=== PATIENT | male | born 1960 | race Caucasian/White ===

== ENCOUNTER 2019-10-11 12:04 | Emergency (ER) | payer OTHER, SELFPAY ==
[2019-10-11] VITALS (8 sets, daily range): BP systolic 128–150; BP diastolic 79–105; PULSE 72–80; RESP 14–18; TEMP 36.9; O2SAT 95–98; BMI 30.4
--- NOTE | 2019-10-11 12:44 | CTR_ITS ---
PROCEDURE INFORMATION: Exam: CT Abdomen And Pelvis Without Contrast Exam date and time: 10/11/2019 12:48 PM Age: 59 years old Clinical indication: Injury or trauma; Injury history: Kicked in L flank by cow; Initial encounter; Blunt; Injury date: Today; Additional info: Unspecified abdominal pain kicked in flank by cow TECHNIQUE: Imaging protocol: Computed tomography of the abdomen and pelvis without contrast. Radiation optimization: All CT scans at this facility use at least one of these dose optimization techniques: automated exposure control; mA and/or kV adjustment per patient size (includes targeted exams where dose is matched to clinical indication); or iterative reconstruction. COMPARISON: CT Chest/Abdomen/Pelvis w IV* 01/11/2018 1:05 PM RADIATION DOSE METRICS: Total DLP (mGy-cm): 1388.42 FINDINGS: Liver: Normal. No mass. Gallbladder and bile ducts: Normal. No calcified stones. No ductal dilation. Pancreas: Normal. No ductal dilation. Spleen: Normal. No splenomegaly. Adrenals: Normal. No mass. Kidneys and ureters: There is scarring in atrophy of the right kidney. No renal calcification or hydronephrosis. Stomach and bowel: Colonic diverticula are present although there are no CT findings to suggest diverticulitis. No bowel obstruction or wall thickening. Appendix: The appendix is visualized and appears normal. Intraperitoneal space: Unremarkable. No free air. No significant fluid collection. Vasculature: Unremarkable. No abdominal aortic aneurysm. Lymph nodes: Unremarkable. No enlarged lymph nodes. Bladder: Unremarkable as visualized. Reproductive: Unremarkable as visualized. Bones/joints: There is bilateral spondylolysis at L5/S1. There is no evidence for acute fracture or malalignment. Soft tissues: Unremarkable. CT/CT abdomen pelvis wo con [id number] IMPRESSION: There are no acute concerning abnormalities. Radiation Dose CTDIVOL = (mGy): DLP = 1388.42 (mGy-cm)
[2019-10-11] MEDS: ondansetron 2 mg/ML SDV 2 mL 4 MG IVP (13:17)
[2019-10-11] MEDS: morphine 4 mg/mL SDV 1 mL 10 MG IVP ×2 (13:17→15:43)
--- NOTE | 2019-10-11 13:18 | W.ED.TRAUMA ---
HPI - Trauma General: Chief Complaint: Trauma Stated Complaint: kicked by cow Time Seen by Provider: 10/11/19 12:31 Source: patient Mode of arrival: ambulatory Limitations: no limitations History of Present Illness: HPI narrative: 59-year-old gentleman who was tending to his cause in the field when 1 call kicked him in the left flank. He has severe pain in the left flank radiating down to his groin. He denies any hematuria. He is here for evaluation. complaint: injury Onset (ago): minute(s) Loss of Consciousness: no Location: abdomen Associated symptoms: Reports abdominal pain and back pain; Denies confusion, cough, difficulty breathing, epistaxis, fever(s), headache(s), nausea, seizures or short of breath Review of Systems General: Reports: 10 or more systems reviewed and unremarkable except in HPI and below Const: Denies: fever(s) Eyes: Denies: change in vision or blurry vision ENMT: Denies: epistaxis Card: Denies: palpitations, irregular heart rhythm, edema or swelling of feet/ankles Resp: Denies: dyspnea, productive cough or non-productive cough GI: Reports: abdominal pain; Denies: nausea : Denies: flank pain, dysuria, urinary frequency, urinary urgency or urinary hesitancy Musc: Reports: back pain Skin/Breast: Denies: rash, pruritus or erythema Neuro: Denies: headache(s) or confusion Endo: Denies: polyuria, polydipsia or tired all the time PFSH ED PFSH: Medical History (Reviewed 10/11/19 @ 13:19 by Donnie Saravia MD, [facility] [place] DDD (degenerative disc disease), lumbar History of hepatitis C History of pacemaker 2014 Hypertension Surgical History (Reviewed 10/11/19 @ 13:19 by Donnie Saravia MD, [facility] [facility] [place] History of orchiectomy, 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 Family History (Reviewed 10/11/19 @ 13:19 by Donnie Saravia MD, [facility] [facility] [place] Mother Hypertension Grandfather Hypertension CAD (coronary artery disease) Denies family history of Cancer Social History (Reviewed 10/11/19 @ 13:19 by Donnie Saravia MD, [facility] [place] Smoking and tobacco status: never smoked Second hand smoke exposure: No Smoking risk assessment/counseling performed?: No Alcohol intake: never Desire information about alcohol rehabilitation?: No Counseling given: No Desire information about substance/drug rehabilitation?: No Counseling given: No Adopted: No Caregiver/support person: No Lives independently: Yes Household members: spouse Housing: House Marital status: Current occupational status: employed History of recent travel: No Current gender identity: Male Physical Exam Const: COMMON NORMALS: no acute distress, average body habitus, patient oriented x3, no limitations, healthy appearing, alert and well nourished HENMT: COMMON NORMALS: normocephalic, atraumatic and moist oral mucous membranes HEAD & SCALP: normocephalic and atraumatic Eye: COMMON NORMALS: Equal, round and reactive pupils present, EOMs intact bilaterally, conjunctivae normal and no scleral icterus CONJUNCTIVA: Yes conjunctivae normal PUPIL: Yes Equal, round and reactive pupils present Neck/C-Spine: COMMON NORMALS: full ROM, supple, no meningeal signs, no JVD and No carotid bruits Resp: COMMON NORMALS: normal respiratory effort, No retractions, No use of accessory muscles, clear to auscultation bilaterally and percussion normal AUSCULTATION: clear to auscultation bilaterally PERCUSSION: percussion normal Cardio: COMMON NORMALS: no JVD, regular rate, regular rhythm, S1 normal heart sound present, S2 normal heart sound present, No gallops present (Cardio), No clicks present (Cardio), No murmurs present (Cardio), No rub (Cardio) and Peripheral pulses 2+ throughout RATE: regular rate RHYTHM: regular rhythm HEART SOUNDS: S1 normal heart sound present and S2 normal heart sound present PERIPHERAL PULSES: Peripheral pulses 2+ throughout GI: COMMON NORMALS: Normal to inspection, nondistended, normoactive bowel sounds present, Soft to palpation, non-tender, No hepatosplenomegaly present, no masses and no bruits PALPATION: Yes Soft to palpation and Yes No hepatosplenomegaly present : BLADDER/KIDNEY EXAM: Yes CVA tenderness on the left Back/Pelvis: GENERAL BACK: Yes CVA tenderness OTHER: Swelling in his left lumbar region Extremity: COMMON NORMALS: normal to inspection, full ROM, capillary refill normal, no calf tenderness and no pedal edema Neuro: COMMON NORMALS: patient oriented x3 SENSORIUM/ORIENTATION: Yes alert MENINGEAL SIGNS: Yes no meningeal signs Skin: COMMON NORMALS: no rashes or lesions noted, no wounds, turgor normal, no jaundice, no petechiae and no mottling GENERAL SKIN EXAM: no rashes or lesions noted and turgor normal MDM - Trauma MDM Narrative: Medical decision making narrative: 59-year-old male who was hit in the flank region by a cow. CT scan done was negative for acute findings. He is discharged home with a prescription for oral pain medication. Medical Records: Attestation: I reviewed the patient's medical records. Lab Data: Attestation: I reviewed the patient's lab results. Labs: Lab Results 10/11/19 Range/Units 13:49 Urine Color Yellow (Yellow) Urine Appearance Clear (CLEAR) Urine pH 5 (5-7) Ur Specific Gravit y 1.015 (1.005-1.030) Urine Protein 1+ H (Negative) Urine Glucose (UA) Norm (Normal) Urine Ketones Negative (Negative) Urine Blood Neg (Negative) Urine Nitrate Negative (Negative) Urine Bilirubin Neg (NEGATIVE) Urine Urobilinogen Norm (Negative) mg/dL Ur Leukocyte Sonia ase Negative (Negative) Urine RBC None (0-2) /hpf Urine WBC 5-10 H (0-5) /hpf Ur Squamous Epith Cells 0-4 H (0-5) Amorphous Sediment Not Reportable Urine Bacteria 1+ H (NONE) Hyaline Casts 0-4 H Urine Mucus 3+ Imaging Data^: CT Abd/Pel: Radiologist's impression: [address] [address] [address] Scan Report Signed Patient: Rolando Hilliard #: [id number] : 1960Acct#:[id number] Age/Sex: 59 / MADM Date: 10/11/19 Loc: ERRoom/Bed: Attending Dr: Ordering Provider/Ordering MD: Donnie Saravia MD, [facility] [place] Date of Service: 10/11/19 Procedure(s): CT abdomen pelvis wo con [id number] Accession Number(s): [id number] Report Number: [id number] PROCEDURE INFORMATION: Exam: CT Abdomen And Pelvis Without Contrast Exam date and time: 10/11/2019 12:48 PM Age: 59 years old Clinical indication: Injury or trauma; Injury history: Kicked in L flank by cow; Initial encounter; Blunt; Injury date: Today; Additional info: Unspecified abdominal pain kicked in flank by cow TECHNIQUE: Imaging protocol: Computed tomography of the abdomen and pelvis without contrast. Radiation optimization: All CT scans at this facility use at least one of these dose optimization techniques: automated exposure control; mA and/or kV adjustment per patient size (includes targeted exams where dose is matched to clinical indication); or iterative reconstruction. COMPARISON: CT Chest/Abdomen/Pelvis w IV* 01/11/2018 1:05 PM RADIATION DOSE METRICS: Total DLP (mGy-cm): 1388.42 FINDINGS: Liver: Normal. No mass. Gallbladder and bile ducts: Normal. No calcified stones. No ductal dilation. Pancreas: Normal. No ductal dilation. Spleen: Normal. No splenomegaly. Adrenals: Normal. No mass. Kidneys and ureters: There is scarring in atrophy of the right kidney. No renal calcification or hydronephrosis. Stomach and bowel: Colonic diverticula are present although there are no CT findings to suggest diverticulitis. No bowel obstruction or wall thickening. Appendix: The appendix is visualized and appears normal. Intraperitoneal space: Unremarkable. No free air. No significant fluid collection. Vasculature: Unremarkable. No abdominal aortic aneurysm. Lymph nodes: Unremarkable. No enlarged lymph nodes. Bladder: Unremarkable as visualized. Reproductive: Unremarkable as visualized. Bones/joints: There is bilateral spondylolysis at L5/S1. There is no evidence for acute fracture or malalignment. Soft tissues: Unremarkable. CT/CT abdomen pelvis wo con [id number] IMPRESSION: There are no acute concerning abnormalities. Radiation Dose CTDIVOL = (mGy): DLP = 1388.42 (mGy-cm) Dictated By:Liset Callahan MD Signed By:Liset Callahanigned Date/Time:10/11/191456 DD/ 55 Discharge Plan Discharge Patient Disposition: Home, Self-Care Clinical Impression: Acute flank pain, [place] Condition: Stable Prescriptions: [place] 5-325 mg tablet 1 tab PO Q8H PRN (Reason: pain) Qty: 20 RF: 0 Continued metoprolol succinate 50 mg tablet extended release 24 hr 50 mg PO BID RF: 0 donepezil 10 mg tablet 10 mg PO BEDTIME RF: 0 albuterol sulfate 90 mcg/actuation HFA aerosol inhaler 2 puff INHALATION Q6H PRN (Reason: Shortness Of Breath) RF: 0 testosterone 12.5 mg/ 1.25 gram (1 %) gel in metered-dose pump 3 pump topical DAILY RF: 0 Nitrostat 0.4 mg Tablet, Sublingual 0.4 mg SUBLINGUAL Q5M PRN (Reason: Chest Pain) RF: 0 Discharge Orders: Discharge Order (Routine); Ordered 10/11/19 Ordered By: Donnie Saravia Referrals: Ciara Christina FNP-C [Primary Care Provider] - 4-7 days Patient Instructions: Musculoskeletal Pain (ED) Activity Restrictions/Additional Instructions: Return for any new or worsening symptoms. Take the pain medication as needed for pain. Apply ice to the affected area for the next 24 hours then switch to a warm compress. Apply the ice for about 15 minutes on and at least 15 minutes of each time. Same for warm compress. Discharge Date/Time: 10/11/19 16:30 Coding Level of Care Code ED Mother'S Helper for Chg Fwd Exam Comprehensive
[2019-10-11 14:13] LABS: Add Urine Microscopic? YES; Bilirubin Urine Neg (NEGATIVE); Blood Urine Neg (Negative); Glucose Urine UA Norm (Normal); Ketones Urine Negative (Negative); Leukocyte Esterase Urine Negative (Negative); Nitrate Urine Negative (Negative); Protein Urine 1+ (Negative); Specific Gravity, Urine 1.015 (1.005-1.030); Urine Appearance Clear (CLEAR); Urine Color Yellow (Yellow); Urobilinogen Urine Norm (Negative); pH Urine 5 (5-7)
[2019-10-11 14:14] LABS: Add Urine Culture? No; Bacteria Urine 1+; Hyaline Casts Urine 0-4; Mucus Urine 3+; Squamous Epithelial Cell Urine 0-4 (0-5)
== END 2019-10-11 16:30 | disposition home or self-care (01) ==
PROVIDERS: Emergency Provider Family Medicine; PCP Nurse Practitioner Family
DX: R10.9 Unspecified abdominal pain (principal); Z86.19 Personal history of other infectious and parasitic diseases; Z95.0 Presence of cardiac pacemaker
CPT/HCPCS: 12345; 74176; 81001; 96374; 96375; 96376; 99283; J2270; J2405

== ENCOUNTER → 2020-02-23 14:40 | Outpatient (BNVA) | payer OTHER, SELFPAY | PROVIDERS: PCP Nurse Practitioner Family; Visit Provider Nurse Practitioner Family | DX: Z20.828 Contact with and (suspected) exposure to other viral communicable diseases (principal) | CPT/HCPCS: 87426 ==

== ENCOUNTER → 2020-03-19 10:52 | Outpatient (BNVA) | payer OTHER, SELFPAY | PROVIDERS: PCP Nurse Practitioner Family; Visit Provider Emergency Medicine | DX: Z20.828 Contact with and (suspected) exposure to other viral communicable diseases (principal) | CPT/HCPCS: 87635 ==

== ENCOUNTER 2020-03-21 19:52 | Emergency (ER) | payer OTHER, SELFPAY ==
[2020-03-21 20:33] VITALS: BP 98/68; PULSE 99; RESP 22; TEMP 36.8; O2SAT 99; BMI 30.4
--- NOTE | 2020-03-21 20:54 | XR_ITS ---
WS: [id number] XR chest 1V portable [id number] REASON FOR EXAM: syncope FINDINGS: The chest is unchanged compared to 03/21/2020. Battery pack in place over the left chest with leads to the left subclavian vein to the right ventric ular apex and right atrium. The heart is not enlarged. Mild elevation of the right hemidiaphragm. No active pulmonary parenchymal pleural disease. Bony thorax is intact. XR/XR chest 1V portable [id number] IMPRESSION: No acute chest abnormality.
[2020-03-21] MEDS: ondansetron 2 mg/ML SDV 2 mL 4 MG IVP (21:20)
[2020-03-21] MEDS: sodium chloride 0.9% 500 ML 999 ML IV (21:20)
[2020-03-21 21:27] LABS: Basophils % 0.3 %; Eosinophils % 0.1 %; Hematocrit 47.4 % (42.0-52.0); Hemoglobin 16.7 g/dL (11.7-16.6); Lymphocytes # 0.9 10^3/uL (0.8-4.8); Lymphocytes % 11.6 %; Mean Corpuscular HGB Conc 35.2 g/dL (30.0-36.0); Mean Corpuscular Hemoglobin 29.7 pg (28.0-34.0); Mean Corpuscular Volume 84.3 fL (80-94); Mean Platelet Volume 10.9 fL (7.4-10.4); Monocytes # 0.7 10^3/uL (0.2-0.9); Monocytes % 8.8 %; Neutrophils # 6.07 10^3/uL (1.8-7.7); Neutrophils % 78.9 %; Nucleated Red Blood Cells % 0 %; Platelet Count 139 10^3/cmm (130-400); Red Blood Count 5.62 10^6/uL (4.1-5.3); Red Cell Distribution Width 12.3 % (12.1-15.1); White Blood Count 7.7 10^3/uL (4.0-10.0)
--- NOTE | 2020-03-21 21:28 | ED_ITS ---
HPI - COVID General: Chief Complaint: COVID symptoms Stated Complaint: COVID+/all symptoms/in COVID room Time Seen by Provider: 03/21/20 20:08 Source: patient and family (spouse) Mode of arrival: ambulatory Limitations: no limitations Triage information: Has fever, cough or shortness of breath . Exposure to COVID + person last 14 days History of Present Illness: HPI Narrative: 59-year-old male patient presents to the emergency department with increased weakness, nausea vomiting diarrhea x2 days, test results positive, Covid PTC through [facility]. He reports too weak to care for his or himself. MD complaint: known COVID positive and reported COVID exposure Prior covid testing: yes, results known Prior testing date: 03/19/20 COVID 19 common symptoms: positive fever(s), chills, cough, productive cough, dyspnea, fatigue, body aches, loss of sense of smell and/or taste, nasal congestion, nausea, vomiting and diarrhea; negative headache(s) COVID 19 other sytmptoms: negative chest pain Onset (ago): day(s) (5) Severity: moderate and slowly worsening Pertinent comorbid conditions: hypertension, heart disease, COPD/respiratory disease and chronic kidney disease Treatment prior to arrival: acetaminophen and breathing treatments COVID Results: SARS-CoV-2 Antigen (Rapid) Negative (Negative) 02/23/20 14:40 02/23/20 Nasal/Oral Coronavirus 2019 PCR Positive 03/19/20 10:52 03/19/20 Review of Systems General: Reports: 10 or more systems reviewed and unremarkable except in HPI and below Const: Reports: fever(s), chills, body aches, fatigue and malaise Eyes: Denies: change in vision, blurry vision, eye discomfort or eye redness ENMT: Reports: dry mouth, nasal discharge, nasal congestion and post nasal drip; Denies: uvular edema, dental pain, ear or mastoid pain or nasal obstruction Card: Reports: dyspnea on exertion; Denies: chest pain, palpitations, irregular heart rhythm, edema, swelling of feet/ankles, lightheadedness, syncope or orthopnea Resp: Reports: dyspnea, productive cough, wheezing, change in phlegm color and chest congestion; Denies: hemoptysis GI: Reports: nausea, vomiting and diarrhea; Denies: abdominal pain, constipation or bloating : Denies: dysuria Musc: Denies: back pain Skin/Breast: Denies: rash or pruritus Neuro: Denies: headache(s), weakness in extremities or behavioral changes Sony/Lymph: Denies: easy bruising PFSH ED PFSH: Medical History (Updated 03/21/20 @ 23:10 by LIZ Stewart) DDD (degenerative disc disease), lumbar History of hepatitis C History of pacemaker 2014 Hypertension Surgical History History of orchiectomy, 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 Family History Mother Hypertension Grandfather Hypertension CAD (coronary artery disease) Denies family history of Cancer Social History Smoking and tobacco status: never smoked Second hand smoke exposure: No Smoking risk assessment/counseling performed?: No Alcohol intake: never Desire information about alcohol rehabilitation?: No Counseling given: No Desire information about substance/drug rehabilitation?: No Counseling given: No Adopted: No Caregiver/support person: No Lives independently: Yes Household members: spouse Housing: House Marital status: Current occupational status: employed History of recent travel: No Current gender identity: Male Physical Exam Const: COMMON NORMALS: no acute distress, average body habitus, patient oriented x3, healthy appearing and alert EXAM LIMITATIONS: no altered mental status and no language barrier GENERAL APPEARANCE: cooperative, comfortable, well kempt, well developed and well hydrated; not anxious, not disheveled, not ill appearing, not frail appearing and not diaphoretic NUTRITIONAL APPEARANCE: overweight ORIENTATION/CONSCIOUSNESS: Yes awake, Yes oriented to person, Yes oriented to place and Yes oriented to time; not confused HENMT: COMMON NORMALS: normocephalic, atraumatic, EAC's normal, Normal external nose present and moist oral mucous membranes HEAD & SCALP: normal to inspection, normocephalic and atraumatic; no Acrocyanosis present FACE & SINUS: normal facial exam and face symmetric; no Acrocyanosis present NOSE: Normal external nose present and Normal nares present EXTERNAL AUDITORY CANAL: EAC's normal MOUTH: moist mucous membranes abnormal (dry) THROAT: uvula midline; no uvular edema Eye: COMMON NORMALS: Equal, round and reactive pupils present and EOMs intact bilaterally GENERAL EYE: appearance normal, both eyes and all related structures PUPIL: Yes Equal, round and reactive pupils present Neck/C-Spine: COMMON NORMALS: full ROM and no lymphadenopathy GENERAL: Yes normal visual inspection and Yes trachea midline CERVICAL SPINE: Yes cervical ROM normal Lymph: LYMPHATIC: no lymphadenopathy noted Chest: COMMONS NORMALS: normal inspection of the chest and normal palpation of entire chest wall Resp: COMMON NORMALS: normal respiratory effort, No retractions, No use of accessory muscles and clear to auscultation bilaterally EFFORT & INSPECTION: Yes able to speak in complete sentences and No uses accessory muscles AUSCULTATION: clear to auscultation bilaterally, no rhonchi, no wheezes and diminished lung sounds bilateral in the lower lung leach Cardio: COMMON NORMALS: regular rate, regular rhythm, S1 normal heart sound present, S2 normal heart sound present and Peripheral pulses 2+ throughout RATE: regular rate RHYTHM: regular rhythm HEART SOUNDS: S1 normal heart sound present and S2 normal heart sound present PERIPHERAL PULSES: Peripheral pulses 2+ throughout GI: COMMON NORMALS: Normal to inspection, nondistended, normoactive bowel sounds present, Soft to palpation and non-tender INSPECTION: Yes normal to inspection, No visible herniation, No visible pulsation and No Fluid wave present PALPATION: Yes Soft to palpation PERCUSSION: no fluid wave : COMMON NORMALS: Yes no CVA tenderness BLADDER/KIDNEY EXAM: Yes no CVA tenderness Back/Pelvis: COMMON NORMALS: no CVA tenderness and thoracic and lumbar spine normal to inspection Extremity: COMMON NORMALS: normal to inspection and capillary refill normal Neuro: COMMON NORMALS: patient oriented x3 and no focal motor deficits SENSORIUM/ORIENTATION: Yes alert, Yes oriented to person, Yes oriented to place and Yes oriented to time Psych: COMMON NORMALS: mental status grossly normal, Normal thought process present and cooperative APPEARANCE: Yes well kempt ACTIVITY/MOTOR BEHAVIOR: Yes appropriate eye contact THOUGHT PROCESS: Normal thought process present Skin: COMMON NORMALS: no rashes or lesions noted and turgor normal GENERAL SKIN EXAM: no rashes or lesions noted and turgor normal Course ED course: 59-year-old male patient presents to the emergency department tonight with Covid symptoms, increased weakness, vomiting and diarrhea. IV fluids administered with Zofran. Patient was able to tolerate oral hydration without vomiting. CTA chest with groundglass opacities consistent with Covid infection. Oxygen saturation remained 95 to 100% during his stay. Ability to monitor oxygen saturation at home with pulse ox, advised to return to the emergency department if hypoxia, O2 sat less than 90% occurs. Nausea resolved. He reports feels better and wants to go home. Prescription of Zofran with prednisone provided. Advised to return to the emergency department for concerning symptoms, verbalized understanding. Is advised to continue quar antine and recommendations as per health department. Vital Signs: Vital signs: Vital Signs Temperature 98.3 F 03/21/20 20:33 Pulse Rate 74 03/21/20 23:35 Respiratory Rate 18 03/21/20 23:35 Blood Pressure 124/83 03/21/20 23:35 Pulse Oximetry 95 03/21/20 23:35 MDM - COVID Differential Diagnosis: Differential diagnosis: Likely COVID 19, influenza and pulmonary embolism Lab Data: Labs: Lab Results 03/21/20 03/21/20 03/21/20 Range/Units 21:13 21:13 21:13 WBC 7.7 (4.0-10.0) 10^3/ uL RBC 5.62 H (4.1-5.3) 10^6/u L Hgb 16.7 H (11.7-16.6) g/dL Hct 47.4 (42.0-52.0) % MCV 84.3 (80-94) fL MCH 29.7 (28.0-34.0) pg MCHC 35.2 (30.0-36.0) g/dL RDW 12.3 (12.1-15.1) % Plt Count 139 (130-400) 10^3/c mm MPV 10.9 H (7.4-10.4) fL Neut % (Auto) 78.9 % Lymph % (Auto) 11.6 % [place] % (Auto) 8.8 % Eos % (Auto) 0.1 % Baso % (Auto) 0.3 % Neut # (Auto) 6.07 (1.8-7.7) 10^3/u L Lymph # (Auto) 0.9 (0.8-4.8) 10^3/u L [place] # (Auto) 0.7 (0.2-0.9) 10^3/u L Eos # (Auto) 0.0 (0.0-0.8) 10^3/u L Baso # (Auto) 0.0 (0.0-0.1) 10^3/u L Nucleated RBC % (a uto) 0 % Nucleated RBCs # 0.0 /100WBC ESR 7 (0-10) mm/hr D-Dimer 0.76 H (0-0.59) ug/mIFE U Sodium (136-145) mmol/L Potassium (3.5-5.1) mmol/L Chloride (98-107) mmol/L Carbon Dioxide (22-29) mmol/L Anion Gap (5-19) BUN (6-20) mg/dL Creatinine (0.7-1.2) mg/dL GFR Calculation (90-130) mL/min Glucose (65-115) mg/dL Calculated Osmolal ity (285-295) mOsm/k g Lactate (0.5-2.2) mmol/L Calcium (8.5-10.5) mg/dL Total Bilirubin (0.15-1.2) mg/dL AST (0-40) U/L ALT (0-41) U/L Alkaline Phosphata se (40-130) IU/L Troponin T Baselin e (0-15) ng/L C-Reactive Protein (0.0-4.9) mg/L NT-Pro-B Natriuret Pep (0-125) pg/mL Total Protein (6.6-8.7) g/dL Albumin (3.5-5.2) g/dL Globulin (1.3-4.6) g/dL Influenza Type A A g (Negative) Influenza Type B A g (Negative) 03/21/20 03/21/20 03/21/20 Range/Units 21:13 21:13 21:13 WBC (4.0-10.0) 10^3/ uL RBC (4.1-5.3) 10^6/u L Hgb (11.7-16.6) g/dL Hct (42.0-52.0) % MCV (80-94) fL MCH (28.0-34.0) pg MCHC (30.0-36.0) g/dL RDW (12.1-15.1) % Plt Count (130-400) 10^3/c mm MPV (7.4-10.4) fL Neut % (Auto) % Lymph % (Auto) % [place] % (Auto) % Eos % (Auto) % Baso % (Auto) % Neut # (Auto) (1.8-7.7) 10^3/u L Lymph # (Auto) (0.8-4.8) 10^3/u L [place] # (Auto) (0.2-0.9) 10^3/u L Eos # (Auto) (0.0-0.8) 10^3/u L Baso # (Auto) (0.0-0.1) 10^3/u L Nucleated RBC % (a uto) % Nucleated RBCs # /100WBC ESR (0-10) mm/hr D-Dimer (0-0.59) ug/mIFE U Sodium 133 L (136-145) mmol/L Potassium 3.7 (3.5-5.1) mmol/L Chloride 100 (98-107) mmol/L Carbon Dioxide 22 (22-29) mmol/L Anion Gap 14.7 (5-19) BUN 11 (6-20) mg/dL Creatinine 1.1 (0.7-1.2) mg/dL GFR Calculation 69.0 L (90-130) mL/min Glucose 135 H (65-115) mg/dL Calculated Osmolal ity 277 L (285-295) mOsm/k g Lactate 1.3 (0.5-2.2) mmol/L Calcium 8.6 (8.5-10.5) mg/dL Total Bilirubin 0.5 (0.15-1.2) mg/dL AST 21 (0-40) U/L ALT 23 (0-41) U/L Alkaline Phosphata se 64 (40-130) IU/L Troponin T Baselin e 7 (0-15) ng/L C-Reactive Protein 8.2 H (0.0-4.9) mg/L NT-Pro-B Natriuret Pep 24 (0-125) pg/mL Total Protein 6.5 L (6.6-8.7) g/dL Albumin 4.0 (3.5-5.2) g/dL Globulin 2.5 (1.3-4.6) g/dL Influenza Type A A g (Negative) Influenza Type B A g (Negative) 03/21/20 Range/Units 21:14 WBC (4.0-10.0) 10^3/ uL RBC (4.1-5.3) 10^6/u L Hgb (11.7-16.6) g/dL Hct (42.0-52.0) % MCV (80-94) fL MCH (28.0-34.0) pg MCHC (30.0-36.0) g/dL RDW (12.1-15.1) % Plt Count (130-400) 10^3/c mm MPV (7.4-10.4) fL Neut % (Auto) % Lymph % (Auto) % [place] % (Auto) % Eos % (Auto) % Baso % (Auto) % Neut # (Auto) (1.8-7.7) 10^3/u L Lymph # (Auto) (0.8-4.8) 10^3/u L [place] # (Auto) (0.2-0.9) 10^3/u L Eos # (Auto) (0.0-0.8) 10^3/u L Baso # (Auto) (0.0-0.1) 10^3/u L Nucleated RBC % (a uto) % Nucleated RBCs # /100WBC ESR (0-10) mm/hr D-Dimer (0-0.59) ug/mIFE U Sodium (136-145) mmol/L Potassium (3.5-5.1) mmol/L Chloride (98-107) mmol/L Carbon Dioxide (22-29) mmol/L Anion Gap (5-19) BUN (6-20) mg/dL Creatinine (0.7-1.2) mg/dL GFR Calculation (90-130) mL/min Glucose (65-115) mg/dL Calculated Osmolal ity (285-295) mOsm/k g Lactate (0.5-2.2) mmol/L Calcium (8.5-10.5) mg/dL Total Bilirubin (0.15-1.2) mg/dL AST (0-40) U/L ALT (0-41) U/L Alkaline Phosphata se (40-130) IU/L Troponin T Baselin e (0-15) ng/L C-Reactive Protein (0.0-4.9) mg/L NT-Pro-B Natriuret Pep (0-125) pg/mL Total Protein (6.6-8.7) g/dL Albumin (3.5-5.2) g/dL Globulin (1.3-4.6) g/dL Influenza Type A A g Negative (Negative) Influenza Type B A g Negative (Negative) Imaging Data: CTA Chest: Radiologist's impression: [address] [address] [address] Scan Report Signed Patient: Rolando Hilliard #: [id number] : 1960Acct#:[id number] Age/Sex: 59 / MADM Date: 03/21/20 Loc: ERRoom/Bed: Attending Dr: Ordering Provider/Ordering MD: Sarah Díaz Date of Service: 03/21/20 Procedure(s): CT angio chest PE protcl [id number] Accession Number(s): [id number] Report Number: [id number] PROCEDURE INFORMATION: Exam: CT Angiography Chest With Contrast Exam date and time: 03/21/2020 10:17 PM Age: 59 years old Clinical indication: Abnormal findings; Abnormal diagnostic tests; Elevated d-dimer; Prior surgery; Surgery type: Pacer. Stimulator. ; Patient HX: Elevated d dimer. Covid +; Additional info: Elevated d-dimer, SOB TECHNIQUE: Imaging protocol: Computed tomographic angiography of the chest with intravenous contrast. 3D rendering (Not supervised by radiologist): MIP and/or 3D reconstructed images were created by the technologist. Radiation optimization: All CT scans at this facility use at least one of these dose optimization techniques: automated exposure control; mA and/or kV adjustment per patient size (includes targeted exams where dose is matched to clinical indication); or iterative reconstruction. Contrast material: OMNI 350; Contrast volume: 69 ml; Contrast route: INTRAVENOUS (IV); COMPARISON: CT Chest/Abdomen/Pelvis w IV* 01/11/2018 1:05 PM RADIATION DOSE METRICS: Total DLP (mGy-cm): 598.11 FINDINGS: Tubes, catheters and devices: A pacemaker device is present, and its leads are in appropriate position. There are neurostimulator electrodes in the thoracic region not changed from previous. Pulmonary arteries: There is no evidence of filling defects within the pulmonary arterial circulation to suggest pulmonary embolism. Aorta: Unremarkable. No aortic aneurysm. No aortic dissection. Lungs: There are some minimal areas of rounded ground-glass opacity. These are located at the left lung base such as an image number 320 in the posterior right lower lobe superior segment and abutting the major fissure in the posterior segment of the right upper lobe. These findings may be consistent with the clinical diagnosis of COVID-19 infection. Pleural space: Unremarkable. No pneumothorax. No pleural effusion. Heart: Unremarkable. No cardiomegaly. No pericardial effusion. Lymph nodes: There are mildly prominent precarinal and AP window lymph nodes measuring up to 12 x 15 mm not significantly changed from previous. Bones/joints: Unremarkable. No acute fracture. Soft tissues: Unremarkable. CT/CT angio chest PE protcl [id number] IMPRESSION: 1. No evidence of pulmonary embolism. 2. Minimal pulmonary ground-glass opacities which could represent COVID-19 infection. Radiation Dose CTDIVOL = (mGy): DLP = 598.11 (mGy-cm) Dictated By:Dandre Butt Signed By:Cruzito Buttigned Date/Time:03/21/202307 DD/ 05 EKG Data: EKG 1: EKG interpretation date: 03/21/20 EKG interpretation time: 21:09 Other EKG comments: Sinus rhythm, atypical ECG, ventricular rate 80 COVID Results: SARS-CoV-2 Antigen (Rapid) Negative (Negative) 02/23/20 14:40 02/23/20 Nasal/Oral Coronavirus 2019 PCR Positive 03/19/20 10:52 03/19/20 Discharge Plan Discharge Patient Disposition: Home Clinical Impression: COVID-19, Acute bronchitis due to 2019 novel coronavirus Condition: Stable Prescriptions: New Zofran 4 mg tablet 4 mg PO Q4H Qty: 10 RF: 0 prednisone 20 mg tablet 20 mg PO BID 5 Days Qty: 10 RF: 0 No Action metoprolol succinate 50 mg tablet extended release 24 hr 50 mg PO BID RF: 0 donepezil 10 mg tablet 10 mg PO BEDTIME@2100 RF: 0 albuterol sulfate 90 mcg/actuation HFA aerosol inhaler 2 puff INHALATION Q6H PRN (Reason: Shortness Of Breath) RF: 0 testosterone 12.5 mg/ 1.25 gram (1 %) gel in metered-dose pump 3 pump topical DAILY@0600 RF: 0 nitroglycerin [Nitrostat] 0.4 mg Tablet, Sublingual 0.4 mg SUBLINGUAL Q5M PRN (Reason: Chest Pain) RF: 0 hydrocodone-acetaminophen [[place]] 5-325 mg tablet 1 tab PO Q8H PRN (Reason: pain) Qty: 20 RF: 0 Tylenol 325 mg Tablet 325 - 650 mg PO Q4H PRN (Reason: fever/pain) RF: 0 Discharge Orders: Discharge ED (Routine); Ordered 03/21/20 Ordered By: Sarah Díaz Referrals: Ciara Christina FNP-C [Primary Care Provider] - Discharge Diet: Advance as tolerated and Clear Liquid Discharge Activity: Limit activity as instructed Patient Instructions: Acute Bronchitis (ED), Viral Syndrome (ED) Activity Restrictions/Additional Instructions: remain in quarantine as directed by the health department Continue to monitor pulse ox - return to the ED if you experience oxygen level less than 90 % Take Zofran as needed for nausea - clear liquids then advance diet as tolerated, return to the ED if you experience continued vomiting with use of Zofran Rest at home, you will need to push fluids to avoid dehydration. Continue albuterol inhaler as needed for cough. Return to the emergency department if you develop inability to catch your breath, low oxygen level or increased shortness of breath. 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
[2020-03-21 21:38] VITALS: BP 122/91; PULSE 75; RESP 18; O2SAT 92; O2SAT 93
[2020-03-21 21:43] LABS: D Dimer 0.76 ug/mIFEU (0-0.59)
[2020-03-21 21:48] LABS: Lactate (Lactic Acid level) 1.3 mmol/L (0.5-2.2); Troponin(5th) Baseline 7 ng/L (0-15)
[2020-03-21 21:57] LABS: Alanine Aminotransferase 23 U/L (0-41); Alkaline Phosphatase 64 IU/L (40-130); Anion Gap 14.7 (5-19); Aspartate Amino Transferase 21 U/L (0-40); Blood Urea Nitrogen 11 mg/dL (6-20); C Reactive Protein 8.2 mg/L (0.0-4.9); Calcium 8.6 mg/dL (8.5-10.5); Carbon Dioxide 22 mmol/L (22-29); Chloride 100 mmol/L (98-107); Globulin 2.5 g/dL (1.3-4.6); Glucose 135 mg/dL (65-115); NT Pro B Type Natriuretic Pept 24 pg/mL (0-125); Osmolality Calculated 277 mOsm/kg (285-295); Potassium 3.7 mmol/L (3.5-5.1); Sodium 133 mmol/L (136-145); Total Bilirubin 0.5 mg/dL (0.15-1.2); Total Protein 6.5 g/dL (6.6-8.7)
--- NOTE | 2020-03-21 22:07 | CTR_ITS ---
PROCEDURE INFORMATION: Exam: CT Angiography Chest With Contrast Exam date and time: 03/21/2020 10:17 PM Age: 59 years old Clinical indication: Abnormal findings; Abnormal diagnostic tests; Elevated d-dimer; Prior surgery; Surgery type: Pacer. Stimulator. ; Patient HX: Elevated d dimer. Covid +; Additional info: Elevated d-dimer, SOB TECHNIQUE: Imaging protocol: Computed tomographic angiography of the chest with intravenous contrast. 3D rendering (Not supervised by radiologist): MIP and/or 3D reconstructed images were created by the technologist. Radiation optimization: All CT scans at this facility use at least one of these dose optimization techniques: automated exposure control; mA and/or kV adjustment per patient size (includes targeted exams where dose is matched to clinical indication); or iterative reconstruction. Contrast material: OMNI 350; Contrast volume: 69 ml; Contrast route: INTRAVENOUS (IV); COMPARISON: CT Chest/Abdomen/Pelvis w IV* 01/11/2018 1:05 PM RADIATION DOSE METRICS: Total DLP (mGy-cm): 598.11 FINDINGS: Tubes, catheters and devices: A pacemaker device is present, and its leads are in appropriate position. There are neurostimulator electrodes in the thoracic region not changed from previous. Pulmonary arteries: There is no evidence of filling defects within the pulmonary arterial circulation to suggest pulmonary embolism. Aorta: Unremarkable. No aortic aneurysm. No aortic dissection. Lungs: There are some minimal areas of rounded ground-glass opacity. These are located at the left lung base such as an image number 320 in the posterior right lower lobe superior segment and abutting the major fissure in the posterior segment of the right upper lobe. These findings may be consistent with the clinical diagnosis of COVID-19 infection. Pleural space: Unremarkable. No pneumothorax. No pleural effusion. Heart: Unremarkable. No cardiomegaly. No pericardial effusion. Lymph nodes: There are mildly prominent precarinal and AP window lymph nodes measuring up to 12 x 15 mm not significantly changed from previous. Bones/joints: Unremarkable. No acute fracture. Soft tissues: Unremarkable. CT/CT angio chest PE protcl [id number] IMPRESSION: 1. No evidence of pulmonary embolism. 2. Minimal pulmonary ground-glass opacities which could represent COVID-19 infection. Radiation Dose CTDIVOL = (mGy): DLP = 598.11 (mGy-cm)
[2020-03-21 22:10] LABS: Influenza A by IFA Negative (Negative); Influenza B by IFA Negative (Negative)
[2020-03-21 22:12] LABS: Erythrocyte Sedimentation Rate 7 mm/hr (0-10)
[2020-03-21] MEDS: iohexol 350 mg/mL 100 mL Btl IV (22:20)
[2020-03-21 23:18] VITALS: BP 140/80; PULSE 71; RESP 18; O2SAT 94
[2020-03-21] MEDS: predniSONE 20 mg Tablet PO (23:30)
[2020-03-21 23:35] VITALS: BP 124/83; PULSE 74; RESP 18; O2SAT 95
[2020-03-22 01:50] LABS: Procalcitonin 0.11 ng/mL (0-0.5)
== END 2020-03-21 23:36 | disposition home or self-care (01) ==
PROVIDERS: Emergency Provider Nurse Practitioner Family; PCP Nurse Practitioner Family
DX: U07.1 COVID-19 (principal); J20.8 Acute bronchitis due to other specified organisms; Z86.19 Personal history of other infectious and parasitic diseases; Z95.0 Presence of cardiac pacemaker; I10 Essential (primary) hypertension
CPT/HCPCS: 12345; 71045; 71275; 80053; 83605; 83880; 84145; 84484; 85025; 85378; 85651; 86140; 87804; 96374; 99283; 99284; J2405; J7040; J7512; Q9967

== ENCOUNTER 2020-03-24 12:22 | Emergency (ER) | payer OTHER, SELFPAY ==
[2020-03-24 12:36] VITALS: BP 116/74; PULSE 98; RESP 24; TEMP 37.7; O2SAT 94; BMI 31.0
--- NOTE | 2020-03-24 12:59 | XRR_ITS ---
PROCEDURE INFORMATION: Exam: XR Chest, 1 View Exam date and time: 03/24/2020 1:24 PM Age: 59 years old Clinical indication: Dyspnea; Additional info: Dyspnea/covid TECHNIQUE: Imaging protocol: XR of the chest Views: 1 view. COMPARISON: CR XR chest 1V portable [id number] 03/21/2020 9:08 PM FINDINGS: Tubes, catheters and devices: Stable left pacemaker. Lungs: Unremarkable. No consolidation. Pleural space: Unremarkable. No pleural effusion. No pneumothorax. Heart/Mediastinum: Unremarkable. No cardiomegaly. Bones/joints: Unremarkable. XR/XR chest 1V portable [id number] IMPRESSION: No acute findings.
--- NOTE | 2020-03-24 13:13 | W.ED.COVID ---
HPI - COVID General: Chief Complaint: COVID symptoms Stated Complaint: COVID+, OX LEVELS DROPPING Time Seen by Provider: 03/24/20 12:48 Triage information: Has fever, cough or shortness of breath. Exposure to COVID + person last 14 days History of Present Illness: HPI Narrative: 59-year-old male presents emergency room with complaint of worsening cough and shortness of breath at times he has a finger sat monitor from at home that he has been monitoring at home. He is getting sats sometimes dropping into the 80s. When I use his finger sat monitor at the bedside there is a discrepancy of 6-8 points on his oxygen saturation. Looking back it is not previous office notes on 03 18 he had a telehealth visit with [facility] at that time he is complaining of symptoms for the previous 4 days that puts him today on day 11 day.. MD complaint: known COVID positive Prior covid testing: yes, results known COVID 19 common symptoms: positive fever(s), chills, cough, non-productive cough, dyspnea, fatigue, body aches, headache(s), throat pain, nasal congestion, nausea and diarrhea COVID 19 other sytmptoms: negative chest pain or requiring oxygen Onset (ago): day(s) (11) Severity: moderate Pertinent comorbid conditions: hypertension and COPD/respiratory disease Treatment prior to arrival: acetaminophen and ibuprofen COVID Results: SARS-CoV-2 Antigen (Rapid) Negative (Negative) 02/23/20 14:40 02/23/20 Nasal/Oral Coronavirus 2019 PCR Positive 03/19/20 10:52 03/19/20 Review of Systems Const: Reports: fever(s), chills, body aches and fatigue ENMT: Reports: throat pain and nasal congestion Card: Denies: chest pain, edema, dyspnea on exertion or orthopnea Resp: Reports: dyspnea and non-productive cough GI: Reports: nausea and diarrhea : Denies: flank pain, dysuria, urinary frequency or urinary urgency Skin/Breast: Denies: rash or pruritus Neuro: Reports: headache(s) PFS ED PFSH: Medical History (Updated 03/24/20 @ 14:15 by Jose Headley DO) DDD (degenerative disc disease), lumbar History of hepatitis C History of pacemaker 2014 Hypertension Surgical History History of orchiectomy, 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 Family History Mother Hypertension Grandfather Hypertension CAD (coronary artery disease) Denies family history of Cancer Social History Smoking and tobacco status: never smoked Second hand smoke exposure: No Smoking risk assessment/counseling performed?: No Alcohol intake: never Desire information about alcohol rehabilitation?: No Counseling given: No Desire information about substance/drug rehabilitation?: No Counseling given: No Adopted: No Caregiver/support person: No Lives independently: Yes Household members: spouse Housing: House Marital status: Current occupational status: employed History of recent travel: No Current gender identity: Male Physical Exam Const: COMMON NORMALS: no acute distress GENERAL APPEARANCE: cooperative and comfortable ORIENTATION/CONSCIOUSNESS: Yes awake, Yes oriented to person, Yes oriented to place and Yes oriented to time HENMT: COMMON NORMALS: normocephalic, atraumatic, hearing grossly normal bilaterally, external ears normal, EAC's normal, TM's normal bilaterally, Normal nasal mucous membranes and turbinates present, moist oral mucous membranes and oropharynx normal HEAD & SCALP: normocephalic and atraumatic NOSE: Normal nasal mucous membranes and turbinates present EXTERNAL EAR: Yes external ears normal EXTERNAL AUDITORY CANAL: EAC's normal TYMPANIC MEMBRANE: TM's normal bilaterally Eye: COMMON NORMALS: Equal, round and reactive pupils present, EOMs intact bilaterally, conjunctivae normal and no scleral icterus CONJUNCTIVA: Yes conjunctivae normal PUPIL: Yes Equal, round and reactive pupils present Neck/C-Spine: COMMON NORMALS: full ROM, no lymphadenopathy, supple and no JVD Lymph: LYMPHATIC: no lymphadenopathy noted and no lymphedema noted Resp: COMMON NORMALS: normal respiratory effort, No retractions, No use of accessory muscles and clear to auscultation bilaterally AUSCULTATION: clear to auscultation bilaterally Cardio: COMMON NORMALS: no JVD, regular rate, regular rhythm and No murmurs present (Cardio) RATE: regular rate RHYTHM: regular rhythm GI: COMMON NORMALS: Soft to palpation and No hepatosplenomegaly present AUSCULTATION: Yes normoactive bowel sounds PALPATION: Yes Soft to palpation, No Tenderness to palpation present (GI), No Guarding due to palpation present (GI) and Yes No hepatosplenomegaly present Extremity: COMMON NORMALS: normal to inspection, capillary refill normal, no clubbing, cyanosis or edema, no calf tenderness and no pedal edema Neuro: SENSORIUM/ORIENTATION: Yes oriented to person, Yes oriented to place and Yes oriented to time Skin: COMMON NORMALS: no rashes or lesions noted GENERAL SKIN EXAM: no rashes or lesions noted Course Vital Signs: Vital signs: Vital Signs Temperature 99.9 F H 03/24/20 12:36 Pulse Rate 91 03/24/20 13:38 Respiratory Rate 18 03/24/20 13:38 Blood Pressure 116/74 03/24/20 12:36 Pulse Oximetry 92 03/24/20 14:11 MDM - COVID MDM Narrative: Medical decision making narrative: He actually seems to be faring this fairly well despite his chronic underlying respiratory disease and other comorbidities. He is on day 11 of symptoms so he is not eligible for monoclonal antibody infusion. Switch him to dexamethasone as well as sending him home with oxygen he actually passed his home O2 eval but on a couple of occasions he does drop little bit and his PO2 on his blood gas is low. He has chronic lung disease from chemical exposure in the past. She has any worsening problems return. Reviewed with him we did not give him fluids labs not reflect that he is significantly dehydrated and fluids in Covid patients can be problematic. Lab Data: Labs: Lab Results 03/24/20 03/24/20 03/24/20 Range/Units 13:06 13:06 13:06 WBC 4.1 (4.0-10.0) 10^3/ uL RBC 5.47 H (4.1-5.3) 10^6/u L Hgb 16.2 (11.7-16.6) g/dL Hct 46.8 (42.0-52.0) % MCV 85.6 (80-94) fL MCH 29.6 (28.0-34.0) pg MCHC 34.6 (30.0-36.0) g/dL RDW 12.0 L (12.1-15.1) % Plt Count 106 L (130-400) 10^3/c mm MPV 10.9 H (7.4-10.4) fL Neut % (Auto) 85.3 % Lymph % (Auto) 8.4 % [place] % (Auto) 5.9 % Eos % (Auto) 0.0 % Baso % (Auto) 0.2 % Neut # (Auto) 3.45 (1.8-7.7) 10^3/u L Lymph # (Auto) 0.3 L (0.8-4.8) 10^3/u L [place] # (Auto) 0.2 (0.2-0.9) 10^3/u L Eos # (Auto) 0.0 (0.0-0.8) 10^3/u L Baso # (Auto) 0.0 (0.0-0.1) 10^3/u L Nucleated RBC % (a uto) 0 % Nucleated RBCs # 0.0 /100WBC D-Dimer 1.00 H (0-0.59) ug/mIFE U Specimen Type Sample Site ABG pH (7.35-7.45) ABG pCO2 (35-45) mmHg ABG pO2 (80.0-100.0) mmH g ABG HCO3 (22-26) mmol/L ABG O2 Saturation ABG Base Excess (-2.0-2.0) mmol/ L Leo Test A-a O2 Gradient (5-10) mmHg Hematocrit (42-52) % Hgb O2 Saturation (95-100) % Carboxyhemoglobin (0.4-20.1) %THgb Methemoglobin (0.4-1.5) % Total Hemoglobin (14-18) g/dL Ionized Calcium (1.1-1.4) mmol/L O2 Delivery Device FiO2 % Recovery Assistant ID Sodium 133 L (136-145) mmol/L Potassium 3.5 (3.5-5.1) mmol/L Chloride 97 L (98-107) mmol/L Carbon Dioxide 27 (22-29) mmol/L Anion Gap 12.5 (5-19) BUN 11 (6-20) mg/dL Creatinine 1.1 (0.7-1.2) mg/dL GFR Calculation 69.0 L (90-130) mL/min Glucose 124 H (65-115) mg/dL Calculated Osmolal ity 277 L (285-295) mOsm/k g Calcium 8.4 L (8.5-10.5) mg/dL Total Bilirubin 0.3 (0.15-1.2) mg/dL AST 24 (0-40) U/L ALT 20 (0-41) U/L Alkaline Phosphata se 57 (40-130) IU/L Total Protein 6.6 (6.6-8.7) g/dL Albumin 3.6 (3.5-5.2) g/dL Globulin 3.0 (1.3-4.6) g/dL 03/24/20 Range/Units 14:00 WBC (4.0-10.0) 10^3/ uL RBC (4.1-5.3) 10^6/u L Hgb (11.7-16.6) g/dL Hct (42.0-52.0) % MCV (80-94) fL MCH (28.0-34.0) pg MCHC (30.0-36.0) g/dL RDW (12.1-15.1) % Plt Count (130-400) 10^3/c mm MPV (7.4-10.4) fL Neut % (Auto) % Lymph % (Auto) % [place] % (Auto) % Eos % (Auto) % Baso % (Auto) % Neut # (Auto) (1.8-7.7) 10^3/u L Lymph # (Auto) (0.8-4.8) 10^3/u L [place] # (Auto) (0.2-0.9) 10^3/u L Eos # (Auto) (0.0-0.8) 10^3/u L Baso # (Auto) (0.0-0.1) 10^3/u L Nucleated RBC % (a uto) % Nucleated RBCs # /100WBC D-Dimer (0-0.59) ug/mIFE U Specimen Type Arterial Sample Site Lr ABG pH 7.50 H (7.35-7.45) ABG pCO2 31.4 L (35-45) mmHg ABG pO2 46.6 L (80.0-100.0) mmH g ABG HCO3 24.3 (22-26) mmol/L ABG O2 Saturation 89.3 ABG Base Excess 2.0 (-2.0-2.0) mmol/ L Leo Test Pos A-a O2 Gradient 8.3 (5-10) mmHg Hematocrit 51.7 (42-52) % Hgb O2 Saturation 88.6 L (95-100) % Carboxyhemoglobin 1.0 (0.4-20.1) %THgb Methemoglobin < 0.0 L (0.4-1.5) % Total Hemoglobin 16.9 (14-18) g/dL Ionized Calcium 1.1 (1.1-1.4) mmol/L O2 Delivery Device Ra FiO2 21.0 % Recovery Assistant ID Glc Sodium 136.0 (136-145) mmol/L Potassium 3.6 (3.5-5.1) mmol/L Chloride (98-107) mmol/L Carbon Dioxide (22-29) mmol/L Anion Gap (5-19) BUN (6-20) mg/dL Creatinine (0.7-1.2) mg/dL GFR Calculation (90-130) mL/min Glucose 106.0 (65-115) mg/dL Calculated Osmolal ity (285-295) mOsm/k g Calcium (8.5-10.5) mg/dL Total Bilirubin (0.15-1.2) mg/dL AST (0-40) U/L ALT (0-41) U/L Alkaline Phosphata se (40-130) IU/L Total Protein (6.6-8.7) g/dL Albumin (3.5-5.2) g/dL Globulin (1.3-4.6) g/dL COVID Results: SARS-CoV-2 Antigen (Rapid) Negative (Negative) 02/23/20 14:40 02/23/20 Nasal/Oral Coronavirus 2019 PCR Positive 03/19/20 10:52 03/19/20 Discharge Plan Discharge Patient Disposition: Home Clinical Impression: COVID-19, Acute exacerbation of chronic obstructive pulmonary disease Condition: Stable Prescriptions: New dexamethasone 6 mg tablet 6 mg PO DAILY Qty: 7 RF: 0 albuterol sulfate 90 mcg/actuation HFA aerosol inhaler 2 inh INHALATION Q4H PRN (Reason: shortness of breath or wheezing) Qty: 18 RF: 0 Discontinued prednisone 20 mg tablet 20 mg PO BID 5 Days Qty: 10 RF: 0 No Action metoprolol succinate 50 mg tablet extended release 24 hr 50 mg PO BID RF: 0 donepezil 10 mg tablet 10 mg PO BEDTIME@2100 RF: 0 albuterol sulfate 90 mcg/actuation HFA aerosol inhaler 2 puff INHALATION Q6H PRN (Reason: Shortness Of Breath) RF: 0 testosterone 12.5 mg/ 1.25 gram (1 %) gel in metered-dose pump 3 pump topical DAILY@0600 RF: 0 nitroglycerin [Nitrostat] 0.4 mg Tablet, Sublingual 0.4 mg SUBLINGUAL Q5M PRN (Reason: Chest Pain) RF: 0 hydrocodone-acetaminophen [[place]] 5-325 mg tablet 1 tab PO Q8H PRN (Reason: pain) Qty: 20 RF: 0 Tylenol 325 mg Tablet 325 - 650 mg PO Q4H PRN (Reason: fever/pain) RF: 0 Zofran 4 mg tablet 4 mg PO Q4H Qty: 10 RF: 0 Discharge Orders: Discharge ED (Routine); Ordered 03/24/20 Ordered By: Jose Headley Other Ambulatory Orders: DME: Oxygen (Order) Location: None Selected Ordered By: Jose Headley Referrals: Ciara Christina, ANISA-C [Primary Care Provider] - Coding Level of Care Code ED Engraver Set Up Operator for Chg Fwd Exam Comprehensive
[2020-03-24] MEDS: dexamethasone 4 mg/mL INJ 6 MG IVP (13:20)
[2020-03-24 13:21] LABS: Basophils % 0.2 %; Hematocrit 46.8 % (42.0-52.0); Hemoglobin 16.2 g/dL (11.7-16.6); Lymphocytes # 0.3 10^3/uL (0.8-4.8); Lymphocytes % 8.4 %; Mean Corpuscular HGB Conc 34.6 g/dL (30.0-36.0); Mean Corpuscular Hemoglobin 29.6 pg (28.0-34.0); Mean Corpuscular Volume 85.6 fL (80-94); Mean Platelet Volume 10.9 fL (7.4-10.4); Monocytes # 0.2 10^3/uL (0.2-0.9); Monocytes % 5.9 %; Neutrophils # 3.45 10^3/uL (1.8-7.7); Neutrophils % 85.3 %; Nucleated Red Blood Cells % 0 %; Platelet Count 106 10^3/cmm (130-400); Red Blood Count 5.47 10^6/uL (4.1-5.3); White Blood Count 4.1 10^3/uL (4.0-10.0)
[2020-03-24] MEDS: albuterol 8 gm MDI 2 PUFF INHALATION (13:32)
[2020-03-24 13:38] VITALS: PULSE 91; RESP 18; O2SAT 96
[2020-03-24 13:39] LABS: Alanine Aminotransferase 20 U/L (0-41); Albumin Level 3.6 g/dL (3.5-5.2); Alkaline Phosphatase 57 IU/L (40-130); Anion Gap 12.5 (5-19); Aspartate Amino Transferase 24 U/L (0-40); Blood Urea Nitrogen 11 mg/dL (6-20); Calcium 8.4 mg/dL (8.5-10.5); Carbon Dioxide 27 mmol/L (22-29); Chloride 97 mmol/L (98-107); Glucose 124 mg/dL (65-115); Osmolality Calculated 277 mOsm/kg (285-295); Potassium 3.5 mmol/L (3.5-5.1); Sodium 133 mmol/L (136-145); Total Bilirubin 0.3 mg/dL (0.15-1.2); Total Protein 6.6 g/dL (6.6-8.7)
[2020-03-24 14:06] LABS: ABG PCO2 31.4 mmHg (35-45); Alveolar-Arterial Oxygen Gradi 8.3 mmHg (5-10); Arterial Blood Gas Hematocrit 51.7 % (42-52); Blood Gas Allen Test Pos; Blood Gas Sample Type Arterial; HCO3 ABG 24.3 mmol/L (22-26); HGB O2 Sat 88.6 % (95-100); Ionized Calcium Level - ABG 1.1 mmol/L (1.1-1.4); Methemoglobin < 0.0 % (0.4-1.5); Oxygen Saturation ABG 89.3; PO2 ABG 46.6 mmHg (80.0-100.0); Potassium Level - ABG 3.6 mmol/L (3.5-5.0); Total Hemoglobin 16.9 g/dL (14-18)
[2020-03-24 14:08] LABS: Blood Gas Operator Identificat GLC; Blood Gas Sample Site LR; Oxygen Device RA
[2020-03-24 14:11] VITALS: O2SAT 92; O2SAT 95
[2020-03-24 14:30] VITALS: O2SAT 92
--- NOTE | 2020-03-24 14:40 | PC.NURSE ---
patient waiting for O2 to be brought and then will be discharged
[2020-03-24 15:56] VITALS: BP 118/72; PULSE 89; RESP 21; TEMP 37.3; O2SAT 95
== END 2020-03-24 16:00 | disposition home or self-care (01) ==
PROVIDERS: Emergency Provider Family Medicine; PCP Nurse Practitioner Family
DX: U07.1 COVID-19 (principal); J44.1 Chronic obstructive pulmonary disease with (acute) exacerbation; Z86.19 Personal history of other infectious and parasitic diseases; Z95.0 Presence of cardiac pacemaker; I10 Essential (primary) hypertension
CPT/HCPCS: 12345; 36600; 71045; 80051; 80053; 82330; 82805; 83605; 85025; 85378; 94640; 96374; 96375; 99282; 99283; J1100; J3535